=== PATIENT | female | born 1970 | race Caucasian/White ===

== ENCOUNTER 2019-05-26 11:43 | Emergency (ER) | payer MEDICAID ==
[~2019-05-26] VITALS: Ht 167.6 cm; Wt 170.0 kg
[~2019-05-26 11:43] MED LIST: BACL10TA2; EPIN0.3P3; GABA-530; HCTZ25T PO; HYDR-3964; LISI-600
[2019-05-26 11:47] VITALS: BP 164/76
[2019-05-26] MEDS ORDERED: SULF1TAB49 PO (12:51)
[2019-05-26] MEDS ORDERED: CEPH250T PO (12:51)
[2019-05-26] MEDS ORDERED: TETanus/Pertussis (Acell)/Diphther VAC/PF (Tdap-Adult) 0.5ml syringe IMVAC ONE (13:00)
== END 2019-05-26 13:30 | disposition home or self-care (01) ==
LOC: ER 11:43
DX: S30.810A Abrasion of lower back and pelvis, initial encounter (principal); L02.212 Cutaneous abscess of back [any part, except buttock and flank]; I10 Essential (primary) hypertension; J45.909 Unspecified asthma, uncomplicated; M06.9 Rheumatoid arthritis, unspecified; Z90.710 Acquired absence of both cervix and uterus; Z88.0 Allergy status to penicillin; Z88.6 Allergy status to analgesic agent; Z91.030 Bee allergy status; Z79.899 Other long term (current) drug therapy; X58.XXXA Exposure to other specified factors, initial encounter; Y93.89 Activity, other specified; Y92.89 Other specified places as the place of occurrence of the external cause; Y99.8 Other external cause status
CPT/HCPCS: 90471; 99283

== ENCOUNTER 2019-06-14 12:28 | Emergency (ER) | payer MEDICAID ==
[~2019-06-14] VITALS: Ht 170.2 cm; Wt 163.0 kg
[2019-06-14 12:39] VITALS: BP 130/56
[2019-06-14] MEDS ORDERED: clindamycin 150mg capsule PO ONE (13:40)
[2019-06-14] MEDS ORDERED: CLIN150C8 PO (14:50)
== END 2019-06-14 15:23 | disposition home or self-care (01) ==
LOC: ER 12:28
DX: L03.312 Cellulitis of back [any part except buttock and flank] (principal); I10 Essential (primary) hypertension; J45.909 Unspecified asthma, uncomplicated; M06.9 Rheumatoid arthritis, unspecified; Z90.710 Acquired absence of both cervix and uterus; Z88.0 Allergy status to penicillin; Z88.5 Allergy status to narcotic agent; Z88.2 Allergy status to sulfonamides; Z91.030 Bee allergy status; Z88.1 Allergy status to other antibiotic agents; Z79.2 Long term (current) use of antibiotics; Z79.899 Other long term (current) drug therapy
CPT/HCPCS: 76881; 99284

== ENCOUNTER 2019-11-05 17:08 | Emergency (ER) | payer MEDICAID ==
[~2019-11-05] VITALS: Ht 167.6 cm; Wt 126.8 kg
[~2019-11-05 17:08] MED LIST changes: +CLIN150C8 PO
[2019-11-05] MEDS ORDERED: HYDR-4383 PO (19:25)
[2019-11-05] MEDS ORDERED: HYDROcodone/acetaminophen 10/325mg tab PO ONE (19:50)
[2019-11-05 19:54] VITALS: BP 165/97
== END 2019-11-05 19:50 | disposition home or self-care (01) ==
LOC: ER 17:09
DX: S80.11XA Contusion of right lower leg, initial encounter (principal); S00.31XA Abrasion of nose, initial encounter; S60.512A Abrasion of left hand, initial encounter; E66.01 Morbid (severe) obesity due to excess calories; I10 Essential (primary) hypertension; M06.9 Rheumatoid arthritis, unspecified; J45.909 Unspecified asthma, uncomplicated; Z90.710 Acquired absence of both cervix and uterus; Z88.0 Allergy status to penicillin; Z88.6 Allergy status to analgesic agent; Z88.1 Allergy status to other antibiotic agents; Z79.899 Other long term (current) drug therapy; W18.30XA Fall on same level, unspecified, initial encounter; Y93.89 Activity, other specified; Y92.89 Other specified places as the place of occurrence of the external cause; Y99.9 Unspecified external cause status
CPT/HCPCS: 70450; 70486; 72125; 73130; 73590; 99285

== ENCOUNTER 2020-03-16 17:13 | Emergency (ER) | payer MEDICAID ==
[~2020-03-16] VITALS: Ht 177.8 cm; Wt 160.0 kg
[~2020-03-16 17:13] MED LIST changes: +HYDR-4383 PO
[2020-03-16 18:52] LABS: BASOPHILS % (AUTO) 0.5 % (0-1); EOSINOPHILS # (AUTO) 0.3 X10'3 (0-0.9); EOSINOPHILS % (AUTO) 2.9 % (0-6); HEMATOCRIT 42.4 % (35.0-45.0); HEMOGLOBIN 14.1 g/dl (12.0-16.0); LYMPHOCYTES % (AUTO) 40.4 % (21-51); MEAN CORPUSCULAR HEMOGLOBIN 31.1 PG (27.0-31.0); MEAN CORPUSCULAR HGB CONC 33.2 g/dL (33.0-36.5); MEAN CORPUSCULAR VOLUME 93.7 FL (78-98); MEAN PLATELET VOLUME 9.3 FL (7.4-10.4); MONOCYTES # (AUTO) 0.7 X10'3 (0-0.9); MONOCYTES % (AUTO) 6.9 % (2-12); NEUTROPHILS # (AUTO) 4.8 X10'3 (1.8-7.7); NEUTROPHILS % (AUTO) 49.3 % (42-75); PLATELET COUNT 261 X10'3 (140-440); RED BLOOD COUNT 4.52 X10'6 (4.20-5.60); WHITE BLOOD COUNT 9.8 X10'3 (4.5-11.0)
[2020-03-16 19:06] LABS: ALANINE AMINOTRANSFERASE 22 U/L (12-78); ALBUMIN/GLOBULIN RATIO 1.2 (1.1-1.5); ALKALINE PHOSPHATASE 41 IU/L (46-116); ANION GAP 8 (8-16); ASPARTATE AMINO TRANSFERASE 31 U/L (10-37); BILIRUBIN,TOTAL 0.2 MG/DL (0.1-1.0); BLOOD UREA NITROGEN 15 MG/DL (7-18); BUN/CREATININE RATIO 11.4 (6.6-38.0); CALCIUM 9.5 MG/DL (8.5-10.1); CHLORIDE 103 MMOL/L (99-107); CREATININE 1.32 MG/DL (0.40-0.90); GLUCOSE 123 MG/DL (70-104); POTASSIUM 4.1 MMOL/L (3.5-5.1); SODIUM 141 MMOL/L (135-145); TOTAL CARBON DIOXIDE 29.6 MMOL/L (24-32); TOTAL PROTEIN 7.3 G/DL (6.4-8.2); eGFR 43 ML/MIN
[2020-03-16 19:58] VITALS: BP 180/91
== END 2020-03-16 19:59 | disposition home or self-care (01) ==
LOC: ER 17:13
DX: I10 Essential (primary) hypertension (principal); N28.9 Disorder of kidney and ureter, unspecified; J45.909 Unspecified asthma, uncomplicated; Z90.710 Acquired absence of both cervix and uterus; Z88.0 Allergy status to penicillin; Z88.6 Allergy status to analgesic agent; Z88.1 Allergy status to other antibiotic agents; Z91.030 Bee allergy status; Z79.2 Long term (current) use of antibiotics; Z79.899 Other long term (current) drug therapy
CPT/HCPCS: 36415; 80053; 85025; 99283

== ENCOUNTER 2021-11-22 15:54 | Emergency (ER) | payer MEDICAID ==
[~2021-11-22] VITALS: Ht 167.6 cm; Wt 145.4 kg
[~2021-11-22 15:54] MED LIST changes: -HCTZ25T PO; +HYDR25TA5 PO; -LISI-600; +LISI20TA28
[2021-11-22 17:25] LABS: CLARITY,URINE CLEAR (Clear); COLOR,URINE YELLOW (Yellow); GLUCOSE, URINE NEGATIVE (Neg); KETONES,URINE NEGATIVE (Neg); LEUKOCYTE ESTERASE ,URINE NEGATIVE (Neg); NITRITES, URINE NEGATIVE (Neg); OCCULT BLOOD,URINE NEGATIVE (Neg); PROTEIN,URINE NEGATIVE (Neg); UROBILINOGEN,URINE 0.2 E.U/dL (0.2-1.0)
[2021-11-22 17:27] LABS: URINE HCG NEGATIVE (NEG)
[2021-11-22 17:29] LABS: UA COLLECTION TYPE CLN CATCH MIDSTREAM
[2021-11-22 18:14] LABS: BASOPHILS # (AUTO) 0.1 X10'3 (0-0.2); EOSINOPHILS # (AUTO) 0.2 X10'3 (0-0.9); EOSINOPHILS % (AUTO) 1.4 % (0-6); HEMATOCRIT 43.8 % (35.0-45.0); HEMOGLOBIN 14.6 g/dl (12.0-16.0); LYMPHOCYTES # (AUTO) 2.9 X10'3 (1.1-4.8); LYMPHOCYTES % (AUTO) 23.2 % (21-51); MEAN CORPUSCULAR HEMOGLOBIN 30.1 PG (27.0-31.0); MEAN CORPUSCULAR HGB CONC 33.4 g/dL (33.0-36.5); MEAN PLATELET VOLUME 9.2 FL (7.4-10.4); MONOCYTES % (AUTO) 7.5 % (2-12); NEUTROPHILS # (AUTO) 8.5 X10'3 (1.8-7.7); NEUTROPHILS % (AUTO) 66.9 % (42-75); PLATELET COUNT 267 X10'3 (140-440); RED BLOOD COUNT 4.86 X10'6 (4.20-5.60); RED CELL DISTRIBUTION WIDTH 13.3 % (11.5-14.5); WHITE BLOOD COUNT 12.7 X10'3 (4.5-11.0)
[2021-11-22 18:31] LABS: ALANINE AMINOTRANSFERASE 50 U/L (12-78); ALBUMIN/GLOBULIN RATIO 1.1 (1.1-1.5); ALKALINE PHOSPHATASE 60 IU/L (46-116); ANION GAP 10 (8-16); ASPARTATE AMINO TRANSFERASE 61 U/L (10-37); BILIRUBIN,TOTAL 0.4 MG/DL (0.1-1.0); BLOOD UREA NITROGEN 9 MG/DL (7-18); BUN/CREATININE RATIO 8.1 (6.6-38.0); CALCIUM 8.8 MG/DL (8.5-10.1); CHLORIDE 107 MMOL/L (99-107); CREATININE 1.11 MG/DL (0.40-0.90); GLUCOSE 120 MG/DL (70-104); POTASSIUM 3.2 MMOL/L (3.5-5.1); SODIUM 139 MMOL/L (135-145); TOTAL CARBON DIOXIDE 21.6 MMOL/L (24-32); TOTAL PROTEIN 7.8 G/DL (6.4-8.2); eGFR 52 ML/MIN
[2021-11-22 19:17] VITALS: BP 208/118
== END 2021-11-22 19:22 | disposition home or self-care (01) ==
LOC: ER 15:55
DX: I12.9 Hypertensive chronic kidney disease with stage 1 through stage 4 chronic kidney disease, or unspecified chronic kidney disease (principal); N18.9 Chronic kidney disease, unspecified; R30.0 Dysuria; Z90.710 Acquired absence of both cervix and uterus; Z85.3 Personal history of malignant neoplasm of breast; Z88.0 Allergy status to penicillin; Z88.6 Allergy status to analgesic agent; Z91.030 Bee allergy status; Z88.1 Allergy status to other antibiotic agents; Z79.2 Long term (current) use of antibiotics; Z79.899 Other long term (current) drug therapy
CPT/HCPCS: 36415; 80053; 81003; 81025; 85025; 99283

== ENCOUNTER 2023-08-13 14:11 | Emergency (ER) | payer MEDICAID ==
[~2023-08-13] VITALS: Ht 167.6 cm; Wt 135.9 kg
[~2023-08-13 14:11] MED LIST changes: +CLIN-214 PO; -CLIN150C8 PO
[2023-08-13 14:35] VITALS: BP 192/105; TEMP 98.3
[2023-08-13] MEDS ORDERED: ipratropium/albuterol 3ml nebule NEB PRN (14:50)
[2023-08-13 16:04] LABS: BASOPHILS # (AUTO) 0.1 X10'3 (0-0.2); BASOPHILS % (AUTO) 0.9 % (0-1); EOSINOPHILS # (AUTO) 0.4 X10'3 (0-0.9); EOSINOPHILS % (AUTO) 2.7 % (0-6); HEMATOCRIT 42.1 % (35.0-45.0); HEMOGLOBIN 14.2 g/dl (12.0-16.0); LYMPHOCYTES # (AUTO) 4.1 X10'3 (1.1-4.8); LYMPHOCYTES % (AUTO) 31.8 % (21-51); MEAN CORPUSCULAR HEMOGLOBIN 30.4 PG (27.0-31.0); MEAN CORPUSCULAR HGB CONC 33.8 g/dL (33.0-36.5); MEAN CORPUSCULAR VOLUME 89.8 FL (78-98); MEAN PLATELET VOLUME 9.4 FL (7.4-10.4); MONOCYTES # (AUTO) 1.1 X10'3 (0-0.9); MONOCYTES % (AUTO) 8.5 % (2-12); NEUTROPHILS # (AUTO) 7.3 X10'3 (1.8-7.7); NEUTROPHILS % (AUTO) 56.1 % (42-75); PLATELET COUNT 317 X10'3 (140-440); RED BLOOD COUNT 4.68 X10'6 (4.20-5.60); RED CELL DISTRIBUTION WIDTH 13.1 % (11.5-14.5)
[2023-08-13 16:19] LABS: ALBUMIN 3.6 G/DL (3.4-5.0); ANION GAP 15 (8-16); BLOOD UREA NITROGEN 10 MG/DL (7-18); BUN/CREATININE RATIO 9.8 (10.0-20.0); CALCIUM 8.9 MG/DL (8.5-10.1); CHLORIDE 105 MMOL/L (99-107); CREATININE 1.02 MG/DL (0.40-0.90); GLUCOSE 106 MG/DL (70-104); MAGNESIUM 1.9 MG/DL (1.5-2.4); POTASSIUM 3.4 MMOL/L (3.5-5.1); SODIUM 145 MMOL/L (135-145); TOTAL CARBON DIOXIDE 25.5 MMOL/L (24-32); eCRCL 61 ML/MIN; eGFR 57 ML/MIN
[2023-08-13] MEDS: ipratropium/albuterol 3ml nebule NEB ONE (18:08)
[2023-08-13 18:11] VITALS: PULSE 127; RESP 18
[2023-08-13 18:17] VITALS: PULSE 98; RESP 18; O2SAT 91
[2023-08-13] MEDS ORDERED: PRED20TA PO (18:22)
[2023-08-13] MEDS ORDERED: ALBU8HFA INH (18:22)
[2023-08-13] MEDS: dexamethasone sod phosphate 10mg/ml inj IM STA (18:37)
[2023-08-13] MEDS: CefTRIAXone 1000mg IM Kit (w/lidocaine diluent) IM ONE (18:37)
[2023-08-14] MEDS ORDERED: CefTRIAXone 2gm/D5W 50ml BAG 50 ML IV SCH (08:00)
[2023-08-14] MEDS ORDERED: azithromycin/NS 500mg/250ml 250 ML IV SCH (08:00)
== END 2023-08-13 18:52 | disposition home or self-care (01) ==
LOC: ER 14:12
DX: J06.9 Acute upper respiratory infection, unspecified (principal); I10 Essential (primary) hypertension; Z20.822 Contact with and (suspected) exposure to COVID-19; J45.909 Unspecified asthma, uncomplicated; Z90.710 Acquired absence of both cervix and uterus; Z87.891 Personal history of nicotine dependence; Z88.0 Allergy status to penicillin; Z88.2 Allergy status to sulfonamides; Z88.8 Allergy status to other drugs, medicaments and biological substances; Z79.899 Other long term (current) drug therapy
CPT/HCPCS: 36415; 71046; 80048; 83605; 83735; 84145; 84484; 85025; 87040; 87502; 87503; 87634; 87811; 93005; 94640; 96372; 99285; J0696; J1100

== ENCOUNTER 2024-08-23 13:11 | Inpatient (IN) | payer MEDICAID ==
[~2024-08-23] VITALS: Ht 172.7 cm; Wt 140.9 kg
[2024-08-23 13:44] LABS: BASOPHILS # (AUTO) 0.1 X10'3 (0-0.2); EOSINOPHILS # (AUTO) 0.1 X10'3 (0-0.9); EOSINOPHILS % (AUTO) 0.6 % (0-6); HEMATOCRIT 43.6 % (35.0-45.0); HEMOGLOBIN 14.4 g/dl (12.0-16.0); LYMPHOCYTES % (AUTO) 14.9 % (21-51); MEAN CORPUSCULAR HEMOGLOBIN 29.4 PG (27.0-31.0); MEAN CORPUSCULAR VOLUME 89.2 FL (78-98); MEAN PLATELET VOLUME 9.4 FL (7.4-10.4); MONOCYTES # (AUTO) 0.8 X10'3 (0-0.9); MONOCYTES % (AUTO) 5.7 % (2-12); NEUTROPHILS # (AUTO) 10.6 X10'3 (1.8-7.7); NEUTROPHILS % (AUTO) 77.8 % (42-75); PLATELET COUNT 248 X10'3 (140-440); RED BLOOD COUNT 4.88 X10'6 (4.20-5.60); RED CELL DISTRIBUTION WIDTH 13.4 % (11.5-14.5); WHITE BLOOD COUNT 13.6 X10'3 (4.5-11.0)
[2024-08-23 14:08] LABS: ALBUMIN 3.5 G/DL (3.4-5.0); ANION GAP 8 (8-16); BLOOD UREA NITROGEN 7 MG/DL (7-18); BUN/CREATININE RATIO 7.9 (10.0-20.0); CALCIUM 9.1 MG/DL (8.5-10.1); CHLORIDE 102 MMOL/L (99-107); CREATININE 0.89 MG/DL (0.40-0.90); GLUCOSE 166 MG/DL (70-104); POTASSIUM 3.7 MMOL/L (3.5-5.1); PRO BRAIN NATRIURETIC PEPTIDE 343 PG/ML (0-125); SODIUM 139 MMOL/L (135-145); TOTAL CARBON DIOXIDE 28.7 MMOL/L (24-32); eCRCL 75 ML/MIN; eGFR 67 ML/MIN
[2024-08-23] MEDS ORDERED: iohexol 350MG/ML 100ml bottle IV ONE (17:12)
[2024-08-23] MEDS: potassium Cl 20 mEq SR tablet PO STA (19:14)
[2024-08-23] MEDS: furosemide 40mg/4ml inj IV ONE (19:15)
[2024-08-23] MEDS ORDERED: furosemide 10 MG/1 ML 10ml inj IV ONE (19:15)
[2024-08-23] MEDS ORDERED: magnesium sulf-water 4G/100mL 100 ML IV PRN (19:20)
[2024-08-23] MEDS ORDERED: morphine 2 MG/ML inj. syringe IV PRN (19:20)
[2024-08-23] MEDS ORDERED: mag hydrox/Alum hydrox/simeth 30ml oral suspension PO PRN (19:20)
[2024-08-23] MEDS ORDERED: bisacodyl 10mg suppository rectal RC PRN (19:20)
[2024-08-23] MEDS ORDERED: potassium Cl 40MEQ/1/2NS 520ml 520 ML IV PRN (19:20)
[2024-08-23] MEDS ORDERED: ondansetron/PF 4mg/2ml inj IV PRN (19:20)
[2024-08-23] MEDS ORDERED: magnesium sulf-water 2g/50mL 50 ML IV PRN (19:20)
[2024-08-23] MEDS ORDERED: potassium Cl 20 mEq SR tablet PO PRN ×2 (19:20)
[2024-08-23] MEDS ORDERED: acetaminophen 325mg tablet PO PRN (19:20)
[2024-08-23] MEDS ORDERED: magnesium Cl slow-release 64mg tablet PO PRN (19:20)
[2024-08-23] MEDS ORDERED: magnesium hydroxide 30ml (MOM) UD suspension PO PRN (19:20)
[2024-08-23] MEDS: lisinopril 20mg tablet PO ONE (19:30)
[2024-08-23] MEDS ORDERED: guaiFENesin 200 MG/10 ML oral syrup UD cup PO PRN (19:30)
[2024-08-23 19:59] LABS: APTT 27 SECONDS (22-32); INR 1.2 INR; PROTHROMBIN TIME 12.3 SECONDS (9.0-12.0)
[2024-08-23] MEDS: K and/or MAG REPLACEMENT MC SCH (20:00)
[2024-08-23] MEDS: docusate sod 100mg capsule PO SCH (20:00)
[2024-08-23] MEDS ORDERED: TAMO20TA4 PO (20:16)
[2024-08-23] MEDS ORDERED: ONDA-243 SL (20:16)
[2024-08-23] MEDS ORDERED: TIZA-205 PO (20:16)
[2024-08-23] MEDS ORDERED: DULO30CA52 PO (20:16)
[2024-08-23] MEDS ORDERED: AMLO5TAB16 PO (20:16)
[2024-08-23] MEDS ORDERED: AMIT25TA9 PO (20:16)
[2024-08-23] MEDS ORDERED: FENO134C21 PO (20:16)
[2024-08-23] MEDS ORDERED: FLUO-331 PO (20:16)
[2024-08-23] MEDS ORDERED: HYDR-3972 PO (20:16)
[2024-08-23] MEDS ORDERED: POTASSIUM PO (20:16)
[2024-08-23] MEDS ORDERED: DILT-94 PO (20:16)
[2024-08-23] MEDS: HYDROcodone/acetaminophen 5mg/325mg tablet PO PRN (20:25)
[2024-08-23] MEDS ORDERED: albuterol 2.5 MG/3 ML nebule NEB PRN (20:50)
[2024-08-23] MEDS ORDERED: tizanidine 4mg tablet PO PRN (21:45)
[2024-08-23] MEDS: duloxetine 30mg CAPSULE.DR PO SCH (22:19)
[2024-08-23] MEDS: amLODIPine 5mg tablet PO SCH (22:19)
[2024-08-23] MEDS: HYDROcodone/acetaminophen 10/325mg tab PO SCH (22:20)
[2024-08-23] MEDS: FLUoxetine 10mg capsule PO SCH (22:24)
[2024-08-23] MEDS: hydrALAZINE 20mg/ml inj. IV ONE (23:22)
[2024-08-23 23:37] LABS: BILIRUBIN,URINE NEGATIVE (Neg); CLARITY,URINE CLEAR (Clear); COLOR,URINE YELLOW (Yellow); GLUCOSE, URINE NEGATIVE (Neg); KETONES,URINE NEGATIVE (Neg); LEUKOCYTE ESTERASE ,URINE NEGATIVE (Neg); NITRITES, URINE NEGATIVE (Neg); OCCULT BLOOD,URINE NEGATIVE (Neg); PROTEIN,URINE NEGATIVE (Neg); UROBILINOGEN,URINE 0.2 E.U/dL (0.2-1.0)
[2024-08-23 23:42] LABS: UA COLLECTION TYPE CLN CATCH MIDSTREAM
[2024-08-23 23:54] LABS: URINE AMPHETAMINE SCREEN NEGATIVE (Neg); URINE BARBITUATE SCREEN NEGATIVE (Neg); URINE BENZODIAZEPINES SCREEN NEGATIVE (Neg); URINE CANNABINOID SCREEN NEGATIVE (Neg); URINE COCAINE SCREEN NEGATIVE (Neg); URINE METHADONE SCREEN NEGATIVE (Neg); URINE OPIATE SCREEN POSITIVE (Neg); URINE PHENCYCLIDINE SCREEN NEGATIVE (Neg)
[2024-08-24] VITALS (12 sets, daily range): BP systolic 73–180; BP diastolic 39–93; PULSE 60–96; RESP 14–71; TEMP 97.7–98.6; O2SAT 86–96
[2024-08-24] MEDS: normal saline 250ml IV soln 250 ML IV ONE (02:32)
[2024-08-24] MEDS ORDERED: albuterol 2.5 MG/3 ML nebule NEB SCH (03:00)
[2024-08-24] MEDS ORDERED: albuterol 2.5 MG/3 ML nebule NEB PRN (06:10)
[2024-08-24 06:12] LABS: BASOPHILS # (AUTO) 0.1 X10'3 (0-0.2); EOSINOPHILS # (AUTO) 0.1 X10'3 (0-0.9); EOSINOPHILS % (AUTO) 0.8 % (0-6); HEMATOCRIT 38.9 % (35.0-45.0); HEMOGLOBIN 12.8 g/dl (12.0-16.0); LYMPHOCYTES # (AUTO) 3.5 X10'3 (1.1-4.8); LYMPHOCYTES % (AUTO) 27.3 % (21-51); MEAN CORPUSCULAR HEMOGLOBIN 29.8 PG (27.0-31.0); MEAN CORPUSCULAR VOLUME 90.2 FL (78-98); MONOCYTES % (AUTO) 8.3 % (2-12); NEUTROPHILS # (AUTO) 7.9 X10'3 (1.8-7.7); NEUTROPHILS % (AUTO) 62.6 % (42-75); PLATELET COUNT 224 X10'3 (140-440); RED BLOOD COUNT 4.31 X10'6 (4.20-5.60); RED CELL DISTRIBUTION WIDTH 13.7 % (11.5-14.5); WHITE BLOOD COUNT 12.6 X10'3 (4.5-11.0)
[2024-08-24 07:08] LABS: ALANINE AMINOTRANSFERASE 19 U/L (12-78); ALBUMIN 3.1 G/DL (3.4-5.0); ALKALINE PHOSPHATASE 64 IU/L (46-116); ANION GAP 8 (8-16); ASPARTATE AMINO TRANSFERASE 12 U/L (10-37); BILIRUBIN,TOTAL 0.4 MG/DL (0.1-1.0); BLOOD UREA NITROGEN 13 MG/DL (7-18); BUN/CREATININE RATIO 9.4 (10.0-20.0); CALCIUM 8.7 MG/DL (8.5-10.1); CHLORIDE 105 MMOL/L (99-107); CREATININE 1.38 MG/DL (0.40-0.90); GLUCOSE 139 MG/DL (70-104); MAGNESIUM 1.9 MG/DL (1.5-2.4); POTASSIUM 3.5 MMOL/L (3.5-5.1); SODIUM 143 MMOL/L (135-145); TOTAL CARBON DIOXIDE 30.1 MMOL/L (24-32); TOTAL PROTEIN 6.3 G/DL (6.4-8.2); eCRCL 48 ML/MIN; eGFR 40 ML/MIN
[2024-08-24] MEDS: furosemide 40mg/4ml inj IV SCH (08:00)
[2024-08-24] MEDS: enoxaparin 40mg/0.4ml syringe SUBCUT SCH (09:03)
[2024-08-24] MEDS: diltiazem CD 120mg capsule (once-daily) PO SCH (09:03)
[2024-08-24] MEDS: tamoxifen 10mg tablet PO SCH (09:04)
[2024-08-24] MEDS ORDERED: CefTRIAXone/D5W-Rocephin 1gm 50 ML IV ONE (18:25)
[2024-08-24] MEDS: amitriptyline 25mg tablet PO SCH (21:19)
[2024-08-24] MEDS: levoFLOXACIN 500mg tablet PO ONE (21:19)
[2024-08-24] MEDS: nystatin 15 GM powder TP SCH (22:04)
[2024-08-25 06:35] VITALS: BP 122/59; PULSE 71; RESP 14; TEMP 96.8; O2SAT 94
[2024-08-25 07:00] VITALS: RESP 18; O2SAT 96
[2024-08-25 07:07] LABS: BASOPHILS # (AUTO) 0.1 X10'3 (0-0.2); EOSINOPHILS # (AUTO) 0.3 X10'3 (0-0.9); EOSINOPHILS % (AUTO) 2.7 % (0-6); GLUCOSE 108 MG/DL (70-104); HEMATOCRIT 41.7 % (35.0-45.0); HEMOGLOBIN 13.5 g/dl (12.0-16.0); LYMPHOCYTES # (AUTO) 3.3 X10'3 (1.1-4.8); LYMPHOCYTES % (AUTO) 34.7 % (21-51); MEAN CORPUSCULAR HEMOGLOBIN 29.8 PG (27.0-31.0); MEAN CORPUSCULAR HGB CONC 32.4 g/dL (33.0-36.5); MEAN CORPUSCULAR VOLUME 91.8 FL (78-98); MEAN PLATELET VOLUME 9.7 FL (7.4-10.4); MONOCYTES # (AUTO) 0.8 X10'3 (0-0.9); MONOCYTES % (AUTO) 8.9 % (2-12); NEUTROPHILS % (AUTO) 52.7 % (42-75); PLATELET COUNT 207 X10'3 (140-440); RED BLOOD COUNT 4.55 X10'6 (4.20-5.60); RED CELL DISTRIBUTION WIDTH 14.5 % (11.5-14.5); WHITE BLOOD COUNT 9.6 X10'3 (4.5-11.0)
[2024-08-25 07:08] LABS: ALANINE AMINOTRANSFERASE 13 U/L (12-78); ALBUMIN/GLOBULIN RATIO 0.8 (1.1-1.5); ALKALINE PHOSPHATASE 65 IU/L (46-116); ANION GAP 9 (8-16); BILIRUBIN,TOTAL 0.5 MG/DL (0.1-1.0); BLOOD UREA NITROGEN 17 MG/DL (7-18); BUN/CREATININE RATIO 19.3 (10.0-20.0); CALCIUM 8.8 MG/DL (8.5-10.1); CHLORIDE 103 MMOL/L (99-107); CREATININE 0.88 MG/DL (0.40-0.90); MAGNESIUM 2.1 MG/DL (1.5-2.4); SODIUM 137 MMOL/L (135-145); TOTAL CARBON DIOXIDE 24.8 MMOL/L (24-32); TOTAL PROTEIN 6.8 G/DL (6.4-8.2); eCRCL 75 ML/MIN; eGFR 67 ML/MIN
[2024-08-25 07:11] LABS: ASPARTATE AMINO TRANSFERASE 36 U/L (10-37); POTASSIUM 4.4 MMOL/L (3.5-5.1)
[2024-08-25] MEDS ORDERED: nystatin 15 GM powder TP SCH (08:00)
[2024-08-25] MEDS ORDERED: CefTRIAXone/D5W-Rocephin 1gm 50 ML IV SCH (08:00)
[2024-08-25 08:45] VITALS: RESP 16
[2024-08-25] MEDS: azithromycin 250mg tablet PO SCH (09:17)
[2024-08-25] MEDS: levoFLOXACIN 500mg tablet PO SCH (09:28)
[2024-08-25] MEDS: furosemide 20 MG/2 ML vial IV SCH (09:28)
[2024-08-25 11:01] VITALS: BP 110/55; PULSE 54; RESP 18; TEMP 97.1; O2SAT 95
[2024-08-25] MEDS ORDERED: levoFLOXACIN 250mg tablet PO SCH (11:17)
[2024-08-25] MEDS ORDERED: FURO-150 PO (12:19)
[2024-08-25] MEDS ORDERED: POTA8TAB69 PO (12:19)
[2024-08-25] MEDS ORDERED: AZI25OT PO (12:19)
[2024-08-25] MEDS ORDERED: CARV-49 PO (12:22)
[2024-08-25] MEDS ORDERED: LISI2.5T14 PO (12:22)
[2024-08-25] MEDS ORDERED: ALBU2.5V7 NEB (13:06)
[2024-08-25 13:41] VITALS: RESP 18
== END 2024-08-25 14:21 | disposition home or self-care (01) | DRG 194 ==
LOC: ER 13:11 → UNDOADMIN 19:20 → ED HOLD 19:20 → ORTHO 4S 23:59 → SUR 3N 08-24 18:02 → ORTHO 4S 08-24 18:02 → UNDODISIN 08-25 14:21
PROVIDERS: ADMIT Internal Medicine Pulmonary Disease; ATTEND Family Medicine
PROC: B32T1ZZ Computerized Tomography (CT Scan) of Left Pulmonary Artery using Low Osmolar Contrast (ICD-10-PCS; principal; 2024-08-23)
PROC: B3201ZZ Computerized Tomography (CT Scan) of Thoracic Aorta using Low Osmolar Contrast (ICD-10-PCS; 2024-08-23)
PROC: B32S1ZZ Computerized Tomography (CT Scan) of Right Pulmonary Artery using Low Osmolar Contrast (ICD-10-PCS; 2024-08-23)
DX: I11.0 Hypertensive heart disease with heart failure (principal); J96.01 Acute respiratory failure with hypoxia; I95.9 Hypotension, unspecified; N17.9 Acute kidney failure, unspecified; G47.30 Sleep apnea, unspecified; Z20.822 Contact with and (suspected) exposure to COVID-19; J44.89 Other specified chronic obstructive pulmonary disease; I50.9 Heart failure, unspecified; M06.9 Rheumatoid arthritis, unspecified; M79.7 Fibromyalgia; M54.9 Dorsalgia, unspecified; F32.A Depression, unspecified; E66.01 Morbid (severe) obesity due to excess calories; Z68.42 Body mass index [BMI] 45.0-49.9, adult; Z79.810 Long term (current) use of selective estrogen receptor modulators (SERMs); Z79.899 Other long term (current) drug therapy; Z85.3 Personal history of malignant neoplasm of breast; Z90.710 Acquired absence of both cervix and uterus; Z92.3 Personal history of irradiation
CPT/HCPCS: 36415; 71045; 71275; 80048; 80053; 80305; 81003; 83735; 83880; 84484; 85025; 85610; 85730; 87081; 87502; 87503; 87811; 93005; 93308; 99285; A4615; G0378; J0360; J1650; J1940; J7040; J7050; Q9967